=== PATIENT | male | born 1940 | race Caucasian/White ===

== ENCOUNTER 2023-04-01 21:22 | Outpatient (REF) | payer MEDICARE, SELFPAY ==
[2023-04-02 08:38] LABS: COVID-19 PCR Negative (Negative); Influenza A PCR Positive (Negative); Influenza B PCR Negative (Negative); RSV PCR Negative (Negative)
[2023-04-02 08:42] LABS: Source Nasopharynx
== END 2023-04-01 21:23 | disposition home or self-care (01) ==
LOC: LBN 21:22
PROVIDERS: Visit Provider Family Medicine
DX: R53.83 Other fatigue (principal); J11.1 Influenza due to unidentified influenza virus with other respiratory manifestations; Z20.822 Contact with and (suspected) exposure to COVID-19
CPT/HCPCS: 87637

== ENCOUNTER 2023-05-19 10:23 | Emergency (ER) | payer OTHER, MEDICARE, SELFPAY ==
[2023-05-19 10:23] VITALS: BP 132/80; PULSE 78; RESP 18; TEMP 37.2; O2SAT 97
--- NOTE | 2023-05-19 10:30 | DI.RAD_ITS ---
Exam(s) XR HAND LT COMPLETE EXAM: XR HAND LT COMPLETE CLINICAL HISTORY: Left hand pain little finger laceration. TECHNIQUE: 2D digital imaging was performed. COMPARISON: No exams were available for comparison FINDINGS: 3 views No evidence of fracture or dislocation. Examination is somewhat limited by all the bones overlapping on the lateral view without separation of the fingers. No obvious degenerative changes nor erosions . No radiopaque foreign body. IMPRESSION: Limited study. No obvious fractures. If there is significant consideration for a finger fracture th en dedicated views of that finger would be recommended. DATA REPOSITORY: RADIATION DOSE DELIVERED:
--- NOTE | 2023-05-19 10:31 | ED.GENADUL_ITS ---
Discharge Plan Disposition Patient Disposition: Home Discharge Details Clinical Impression: Immunization, tetanus-diphtheria, Hx of falling, Laceration of left hand Primary Care Provider: Unknown,Unknown ED Provider: Cesar Blackman Home Meds and New Rx's Prescriptions: Continued donepezil [Aricept] 10 mg tablet 10 mg PO QHS aspirin 81 mg tablet,delayed release (DR/EC) 81 mg PO DAILY Artificial Tears (cmc) 1 % drops 2 drp ophthalmic (eye) BID-QID PRN doxazosin 1 mg tablet 1 mg PO QHS bisacodyl 10 mg suppository 10 mg MD ONCE PRN magnesium oxide 400 mg magnesium tablet 400 mg PO DAILY polyethylene glycol 3350 [Miralax] 17 gram/dose powder 17 g PO DAILY PRN memantine 10 mg tablet 20 mg PO QAM sennosides 8.6 mg tablet 8.6 mg PO DAILY sertraline 25 mg tablet 25 mg PO DAILY Discharge Instructions Instructions: Laceration (ED) Additional Instructions: You were seen in the emergency department for your left hand laceration which was closed with Steri-Strips. The laceration on your chin was closed with 2 stitches that will dissolve on their own. As we discussed, please keep your wound clean, dry and covered. Please do not soak in a tub, swim or engage in any activities which could introduce dirt into your wound. As we discussed if you develop any foul-smelling drainage fevers streaking signs of infection or have any other concerns please return to the emergency department. Your x-ray showed no sign of any obvious broken bones. No signs of any bleeding in your head. For your pain please take medications as follows: 1. Take acetaminophen (Tylenol), 1,000 mg (two 500 mg tabs) every 6 hours Discharge Data Discharge Date/Time-TO BE ENTERED AT DEPARTURE: 05/19/23 12:07 HPI General Date/Time Provider Initiated Documentation: 05/19/23 10:30 . HPI Narrative: MDM This is an overall very well-appearing normothermic and not tachycardic 83-year-old male of unknown hand dominance with left little finger skin tear and left sided chin laceration which were cleaned and repaired. Given head strike will obtain CT head. Handling secretions with no signs of midface instability so no indication for CT maxillofacial. No obvious osseous abnormalities on x- ray of left little finger and no significant tenderness. Radiology commented on limited ability to read left little finger but in the absence of bony tenderness I felt that the risks of immobilization outweigh the benefits. Tetanus updated in the ED. no pain out of proportion to suggest necrotizing soft tissue infection. Patient appears to be moving his left little finger well. No midline cervical spinal tenderness to suggest benefit from CT cervical spine. 2:[address] head was read as showing no acute intercranial process. Dissolvable sutures placed in left side of chin which patient tolerated well. Left little finger skin tear approximated with Steri-Strips following copious cleaning and irrigation. Patient discharged back to skilled rehab. Chronic conditions affecting the care of the patient: Dementia History obtained from an outside historian: Paramedics External record review: N/A Medications: Acetaminophen tetanus Social determinants of health affecting disposition: N/A Management discussed with: N/A Treatment/interventions considered: N/A Response to therapies provided: N/A HPI This is a demented 83-year-old male of unknown handedness arriving to the emergency department via EMS in the setting of a fall. Patient was reportedly ambulating and reportedly fell. He reportedly landed on his left little finger which was bandaged. He struck his chin. No reported chest pain beforehand. No reported loss of consciousness. No reported vomiting. Was in his usual state of health earlier today. Unable to obtain additional history secondary to to the patient's dementia. Patient reportedly is at mental baseline per staff. Exam General: Chronically ill-appearing in no acute distress Head: Normocephalic, atraumatic. Eye: Extraocular eye movements intact. No conjunctival injection. No scleral icterus. Ear, nose, mouth, throat: Left side of the patient's chin there is a approximately 2 cm laceration. Neck: Trachea midline. Cardiovascular: Well-perfused distal extremities. Respiratory: Nonlabored respiration. Gastrointestinal: Nondistended abdomen. Musculoskeletal: At the base of the left little finger overlying the MCP. There is an ulnar skin tear measuring approximately 3 cm that is hemostatic. Patient appears to be moving his finger well. No obvious bony tenderness. Patient appears to be moving his entire hand well. No significant deformities. Skin: Normal for age and race, grossly normal temperature and turgor. No acute rash. Neurologic: GCS 14: E4, V4, M6 Related Data Home Medications Medication Instructions Recorded Confirmed aspirin 81 mg tablet,delayed 81 mg PO DAILY 05/19/23 05/19/23 release bisacodyl 10 mg rectal suppository 10 mg MD ONCE PRN 05/19/23 05/19/23 carboxymethylcellulose sodium 1 % 2 drp ophthalmic (eye) BID-QID PRN 05/19/23 05/19/23 eye drops (Artificial Tears (carboxymethylcellulose)) donepezil 10 mg tablet (Aricept) 10 mg PO QHS 05/19/23 05/19/23 doxazosin 1 mg tablet 1 mg PO QHS 05/19/23 05/19/23 magnesium oxide 400 mg PO DAILY 05/19/23 05/19/23 memantine 10 mg tablet 20 mg PO QAM 05/19/23 05/19/23 polyethylene glycol 3350 17 17 g PO DAILY PRN 05/19/23 05/19/23 gram/dose oral powder (Miralax) sennosides 8.6 mg tablet 8.6 mg PO DAILY 05/19/23 05/19/23 sertraline 25 mg tablet 25 mg PO DAILY 05/19/23 05/19/23 Allergies Allergy/AdvReac Type Severity Reaction Status Date / Time cucumber Allergy Unknown Other (See Verified 05/19/23 10:25 Comment) General Stated Complaint: Laceration MARY: 4 Course Vital Signs Vital signs: Vital Signs Temperature 37.2 C 05/19/23 10:23 Pulse 78 05/19/23 10:23 Respiratory Rate 18 05/19/23 10:23 Blood Pressure 132/80 05/19/23 10:23 Pulse Oximetry 97 05/19/23 10:23 Temperature 37.2 C 05/19/23 10:23 Temperature Source Temporal Artery Scan 05/19/23 10:23 Pulse 78 05/19/23 10:23 Respiratory Rate 18 05/19/23 10:23 Blood Pressure 132/80 05/19/23 10:23 Blood Pressure Position Supine 05/19/23 10:23 Pulse Oximetry 97 05/19/23 10:23 Oxygen Delivery Method Room Air 05/19/23 10:23 Oxygen Flow Rate 0 05/19/23 10:23 Procedures Laceration Laceration 1: Site: face Size (cm): 2 Description: linear Depth: simple, single layer Local Anesthetic: other anesthetic (LET) Pre-repair: wound explored and irrigated extensively Skin layer closed with: other (Chronic cut) Size (cm): 5-0 Number of sutures: 2 Technique: simple, interrupted Laceration 2: Site: hand Side (If applicable): left Size (cm): 2 Description: flap Depth: simple, single layer Pre-repair: wound explored Skin layer closed with: other (Steri-Strips) Medical Decision Making Quality:SDOH Health Related Social Needs: No Data to Display PFSH All Active Problems (Updated 05/19/23 @ 10:33 by Cesar Blackman MD) Laceration of left hand (Acute) Hx of falling (Acute) Immunization, tetanus-diphtheria (Acute) Social History Smoking/Tobacco Use Status: Unknown Smoking risk assessment performed?: Yes Alcohol Intake: former Substance use type: does not use Details: unknown, dementia Housing: shelter Additional Social history: Dementia, unable to answer
[2023-05-19] MEDS: Lidocaine/Epinephri/Tetracaine Topical Gel 3 ML (10:54)
--- NOTE | 2023-05-19 11:01 | DI.VRAD_ITS ---
PROCEDURE INFORMATION: Exam: XR Left Hand Exam date and time: 05/19/2023 10:45 AM Age: 83 years old Clinical indication: Other: Left hand pain little finger laceration TECHNIQUE: Imaging protocol: Radiologic exam of the left hand. Views: 3 or more views. COMPARISON: No relevant prior studies available. FINDINGS: Bones/joints: Limited by patient position and finger flexion. Can not assess for fracture within the 5th digit. Soft tissues: Normal. IMPRESSION: 1. Limited by patient position and finger flexion. 2. Can not assess for fracture within the 5th digit. Dictated and Authenticated by: Alem Izquierdo MD. Ordering:ARIS Guerrero MD
--- NOTE | 2023-05-19 11:04 | DI.CT_ITS ---
Exam(s) CT HEAD WO EXAM: CT HEAD WO CLINICAL HISTORY: fall head strike. TECHNIQUE: Imaging Protocol: Axial computed tomography images with coronal and sagittal reformatted images were created and reviewed COMPARISON: No exams were available for comparison FINDINGS: Motion artifact evident limiting evaluation. There are no depressed skull fractures. There is no fluid in the visualized paranasal sinuses. There is no evidence of obvious acute intracranial hemorrhage, mass effect, or shift of midline struc tures. There are no extra-axial fluid collections. Ventricular system is moderately prominent but commensurate with the size of the overlying cortical s ulci. IMPRESSION: No obvious acute intracranial findings. Evaluation is somewhat limited by motion artifact. Patient was apparently not able to be cooperative. RADIATION DOSE DELIVERED: 818.71mGy.cm Total DLP DATA REPOSITORY: All CT scans at this facility are submitted to the National Radiology Data Registry (NRDR) Dose Index Registry (DIR) with the [employer] (ACR). RADIATION OPTIMIZATION: All CT scans at this facility use at least one of these dose optimization te chniques: automated exposure control; mA and/or kV adjustment per patient size (includes targeted exa ms where dose is matched to clinical indication); or iterative reconstruction.
--- NOTE | 2023-05-19 11:11 | DI.VRAD_ITS ---
PROCEDURE INFORMATION: Exam: CT Head Without Contrast Exam date and time: 05/19/2023 10:59 AM Age: 83 years old Clinical indication: Other: Fall head strike TECHNIQUE: Imaging protocol: Computed tomography of the head without contrast. COMPARISON: No relevant prior studies available. FINDINGS: Brain: Central and cortical brain atrophy evident, appropriate for patient age. There is nonspecific periventricular low attenuation, likely microangiopathic disease. No acute intracranial hemorrhage. Cerebral ventricles: No ventriculomegaly. Paranasal sinuses: Visualized sinuses are unremarkable. No fluid levels. Mastoid air cells: Visualized mastoid air cells are well aerated. Bones/joints: Unremarkable. No acute fracture. Soft tissues: Unremarkable. IMPRESSION: No acute intracranial abnormality. Dictated and Authenticated by: Alem Izquierdo MD. Ordering:ARIS Guerrero MD
[2023-05-19 12:11] VITALS: BP 128/74; PULSE 72; RESP 16; TEMP 37.2; O2SAT 97
== END 2023-05-19 12:07 | disposition home or self-care (01) ==
LOC: ER 11:54
PROVIDERS: Emergency Provider Emergency Medicine
DX: S61.217A Laceration without foreign body of left little finger without damage to nail, initial encounter (principal); W01.190A Fall on same level from slipping, tripping and stumbling with subsequent striking against furniture, initial encounter; Z23 Encounter for immunization; S01.81XA Laceration without foreign body of other part of head, initial encounter
CPT/HCPCS: 12011; 90471; 90715; 99284; 70450; 73130

== ENCOUNTER 2023-05-25 14:31 | Emergency (ER) | payer OTHER, SELFPAY ==
[2023-05-25 14:33] VITALS: BP 154/78; PULSE 53; RESP 15; TEMP 36.3; O2SAT 98
--- NOTE | 2023-05-25 14:36 | W.ED.GENAD ---
Discharge Plan Disposition Patient Disposition: Home Discharge Details Clinical Impression: Abrasion of scalp, Hx of falling, Skin tear of left upper extremity Primary Care Provider: Unknown,Unknown ED Provider: Cesar Blackman Home Meds and New Rx's Prescriptions: Continued donepezil [Aricept] 10 mg tablet 10 mg PO QHS aspirin 81 mg tablet,delayed release (DR/EC) 81 mg PO DAILY Artificial Tears (cmc) 1 % drops 2 drp ophthalmic (eye) BID-QID PRN doxazosin 1 mg tablet 1 mg PO QHS bisacodyl 10 mg suppository 10 mg WA ONCE PRN magnesium oxide 400 mg magnesium tablet 400 mg PO DAILY polyethylene glycol 3350 [Miralax] 17 gram/dose powder 17 g PO DAILY PRN memantine 10 mg tablet 20 mg PO QAM sennosides 8.6 mg tablet 8.6 mg PO DAILY sertraline 25 mg tablet 25 mg PO DAILY Discharge Instructions Instructions: Abrasion (ED) Additional Instructions: You were seen in the emergency department for your left forehead skin tear your CAT scan showed no sign of any bleeding in your head. Which was closed with Steri-Strips. As we discussed, please keep your wound clean, dry and covered. Please do not soak in a tub, swim or engage in any activities which could introduce dirt into your wound. As we discussed if you develop any foul-smelling drainage fevers streaking signs of infection or have any other concerns please return to the emergency department. For your pain please take medications as follows: 1. Take acetaminophen (Tylenol), 1,000 mg (two 500 mg tabs) every 6 hours Discharge Data Discharge Date/Time-TO BE ENTERED AT DEPARTURE: 05/25/23 16:13 HPI General Date/Time Provider Initiated Documentation: 05/25/23 14:34. HPI Narrative: MDM This is an overall very well-appearing afebrile and not tachycardic 83-year-old male of unknown hand dominance with left forehead and left radial wrist skin tear which will be cleaned and repaired using Steri-Strips. Given head strike will obtain CT head. Patient is handling secretions with no signs of midface instability so no indication for CT maxillofacial. No obvious bony tenderness to the left wrist so will defer plain films. Tetanus updated last week in the ED. No pain out of proportion to suggest necrotizing soft tissue infection. No afferent pupillary defect nor proptosis to suggest retrobulbar hematoma so no indication for lateral canthotomy. Patient has a history of dementia and was not ambulating nor did he reportedly had a syncopal episode so we will defer ECG and laboratory evaluation. No midline cervical spinal tenderness to suggest benefit from CT cervical spine. 3:[address] head was read as showing no acute intercranial process. Patient did have a 2 mm round metallic density in the subcu tissues overlying the left masseter muscle. I inspected this area. There is no signs of trauma. Patient's arrived. She said that he had served in the [employer] and had been around explosions. This is certainly possible cause for his metallic foreign body. Given no obvious signs of any trauma in this area I did not feel any further interventions were required. Steri-Strips closed the left forehead skin tear and left wrist skin tear following copious cleaning and irrigation. Patient discharged back to skilled rehab. I updated patient's at bedside. Hypertension resolved in the ED with acetaminophen and LET. Chronic conditions affecting the care of the patient: Dementia History obtained from an outside historian: Paramedics External record review: N/A Medications: Acetaminophen Social determinants of health affecting disposition: N/A Management discussed with: N/A Treatment/interventions considered: N/A Response to therapies provided: N/A HPI This is a demented 83-year-old male of unknown handedness arriving to the emergency department via EMS in the setting of a fall. Patient was reportedly sitting in a chair asleep when he reportedly fell forward. He reportedly landed on his head and left wrist which were bandaged prehospital. No reported chest pain beforehand. No reported loss of consciousness. No reported vomiting. Was in his usual state of health earlier today. Unable to obtain additional history secondary to to the patient's dementia. Patient reportedly is at mental baseline per staff. Exam General: Chronically ill-appearing in no acute distress Head: Normocephalic. On the left temporal scalp there is an approximately 2 x 2 centimeter hemostatic skin tear. Eye: Extraocular eye movements intact. No conjunctival injection. No scleral icterus. No afferent pupillary defect. No proptosis. Ear, nose, mouth, throat: No hemotympanum bilaterally. No septal hematoma. Handling secretions. Neck: Trachea midline. No midline cervical spinal tenderness. Cardiovascular: Well-perfused distal extremities. Regular rate and rhythm. Respiratory: Nonlabored respiration. Clear lungs bilaterally. Gastrointestinal: Nondistended abdomen. Soft nontender. Back: No midline thoracic nor lumbar spinal tenderness. Musculoskeletal: On the radial side of the left wrist there is a hemostatic approximately 1 x 1 cm skin tear. Left hand warm well-perfused 2+ left radial pulse. Patient appears to be moving his left hand well. Cap refill less than 2 seconds in left fingertips. Skin: Normal for age and race, grossly normal temperature and turgor. No acute rash. Neurologic: GCS 14: E4, V4, M6 Related Data Home Medications Medication Instructions Recorded Confirmed aspirin 81 mg tablet,delayed 81 mg PO DAILY 05/19/23 05/25/23 release bisacodyl 10 mg rectal suppository 10 mg WA ONCE PRN 05/19/23 05/25/23 carboxymethylcellulose sodium 1 % 2 drp ophthalmic (eye) BID-QID PRN 05/19/23 05/25/23 eye drops (Artificial Tears (carboxymethylcellulose)) donepezil 10 mg tablet (Aricept) 10 mg PO QHS 05/19/23 05/25/23 doxazosin 1 mg tablet 1 mg PO QHS 05/19/23 05/25/23 magnesium oxide 400 mg PO DAILY 05/19/23 05/25/23 memantine 10 mg tablet 20 mg PO QAM 05/19/23 05/25/23 polyethylene glycol 3350 17 17 g PO DAILY PRN 05/19/23 05/25/23 gram/dose oral powder (Miralax) sennosides 8.6 mg tablet 8.6 mg PO DAILY 05/19/23 05/25/23 sertraline 25 mg tablet 25 mg PO DAILY 05/19/23 05/25/23 Allergies Allergy/AdvReac Type Severity Reaction Status Date / Time cucumber Allergy Unknown Other (See Verified 05/25/23 14:36 Comment) General Stated Complaint: Laceration MARY: 4 Course Vital Signs Vital signs: Vital Signs Temperature 36.3 C L 05/25/23 14:33 Pulse 53 L 05/25/23 14:33 Respiratory Rate 15 05/25/23 14:33 Blood Pressure 154/78 H 05/25/23 14:33 Pulse Oximetry 98 05/25/23 14:33 Temperature 36.3 C L 05/25/23 14:33 Temperature Source Temporal Artery Scan 05/25/23 14:33 Pulse 53 L 05/25/23 14:33 Respiratory Rate 15 05/25/23 14:33 Respiratory Effort Normal 05/25/23 14:35 Blood Pressure 154/78 H 05/25/23 14:33 Blood Pressure Position Sitting 05/25/23 14:33 Pulse Oximetry 98 05/25/23 14:33 Oxygen Delivery Method Room Air 05/25/23 14:33 Oxygen Flow Rate 0 05/25/23 14:33 Procedures Laceration Laceration 1: Site: face Side (If applicable): left Size (cm): 2 Description: flap Depth: simple, single layer Local Anesthetic: other anesthetic (LET) Pre-repair: wound explored and irrigated extensively Skin layer closed with: other (Steri-Strips applied with my supervision by nurse Baker) Laceration 2: Site: upper extremity Side (If applicable): left Size (cm): 1 Description: flap Depth: simple, single layer Pre-repair: wound explored and irrigated extensively Skin layer closed with: other (Steri-Strips applied with my supervision by nurse Baker) Medical Decision Making Quality:SDOH Health Related Social Needs: No Data to Display PFSH All Active Problems (Updated 05/25/23 @ 15:04 by Cesar Blackman MD) Skin tear of left upper extremity (Acute) Abrasion of scalp (Acute) Laceration of left hand (Acute) Hx of falling (Acute) Immunization, tetanus-diphtheria (Acute) Social History Smoking/Tobacco Use Status: Unknown Smoking risk assessment performed?: Yes Alcohol Intake: former Substance use type: does not use Details: unknown, dementia Housing: skilled nursing Additional Social history: Dementia, unable to answer
[2023-05-25] MEDS: Lidocaine/Epinephri/Tetracaine Topical Gel 3 ML TP (14:39)
[2023-05-25] MEDS: Lidocaine/Epinephri/Tetracaine Topical Gel 3 ML (14:48)
--- NOTE | 2023-05-25 15:24 | DI.CT_ITS ---
Exam(s) CT HEAD WO EXAM: CT HEAD WO CLINICAL HISTORY: Left temporal skin tear. TECHNIQUE: Imaging Protocol: Axial computed tomography images with coronal and sagittal reformatted images were created and reviewed COMPARISON: CT CT HEAD WO from 05/19/2023 FINDINGS: The examination is limited due to patient motion artifact. Ventricles and Extra axial spaces: Normal in size and morphology for the patient's age. Hemorrhage: None. Cerebral parenchyma: There are areas of decreased attenuation in the white matter consistent with sma ll vessel ischemic disease. No mass effect. No evidence of an acute territorial infarct. Midline shift: None. Brainstem/Cerebellum: Normal. Calvarium: Normal. Visualized Paranasal sinuses/Mastoids: There is a fluid level in the left maxillary sinus. There is mucosal thickening in the visualized paranasal sinuses with sparing of the sphenoid sinuses. Soft Tissues: There is mild soft tissue swelling over the left cheek. There is a 2 mm metallic densi ty in the subcutaneous tissues overlying the left masseter muscle anterior to the parotid gland. IMPRESSION: 1. No acute intracranial process. 2. 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 3. Soft tissue swelling over the left cheek and the left frontal bone where there appears to be a sma ll laceration. 4. 2 mm round metallic density in the subcutaneous tissues overlying the left masseter muscle anterio r to the left parotid gland. 5. Findings were discussed with Dr. Blackman at 3:40 p.m. on 05/25/2023. RADIATION DOSE DELIVERED: 779.68mGy.cm Total DLP DATA REPOSITORY: All CT scans at this facility are submitted to the National Radiology Data Registry (NRDR) Dose Index Registry (DIR) with the [employer] (ACR). RADIATION OPTIMIZATION: All CT scans at this facility use at least one of these dose optimization te chniques: automated exposure control; mA and/or kV adjustment per patient size (includes targeted exa ms where dose is matched to clinical indication); or iterative reconstruction.
[2023-05-25 16:12] VITALS: BP 126/87; PULSE 59; RESP 16; O2SAT 97
== END 2023-05-25 16:13 | disposition home or self-care (01) ==
PROVIDERS: Emergency Provider Emergency Medicine
DX: S00.01XA Abrasion of scalp, initial encounter (principal); S41.112A Laceration without foreign body of left upper arm, initial encounter; W19.XXXA Unspecified fall, initial encounter; Z91.81 History of falling
CPT/HCPCS: 99284; 70450; 99283

== ENCOUNTER 2023-06-11 13:55 | Inpatient (IN) | payer OTHER, SELFPAY ==
[2023-06-11 13:55] VITALS: BP 138/69; PULSE 69; RESP 15; TEMP 36.6; O2SAT 93
--- NOTE | 2023-06-11 14:00 | DI.CT_ITS ---
Exam(s) CT HEAD CERVICAL SPINE WO EXAM: CT HEAD CERVICAL SPINE WO CLINICAL HISTORY: fall. TECHNIQUE: Imaging Protocol: Axial computed tomography images with coronal and sagittal reformatted images were created and reviewed COMPARISON: CT CT HEAD WO from 05/25/2023 FINDINGS: BRAIN: There are no skull fractures. There is significant amount of fluid in the left maxillary sinus witho ut an obvious orbital blowout fracture. No fluid in the right maxillary sinus. Nasal bone fracture on the right side which is probably not acute. There is a subcutaneous round metallic density over t he lateral left face which was also described on the 05/25/2023 scan. Has the appearance of a metall ic BB. There is no evidence of intracranial hemorrhage, mass effect, or shift of midline structures. There are no extra-axial fluid collections. The lateral ventricles are somewhat prominent in size but joyce lar to previous. There is some mild periventricular hypodensity consistent with chronic small vessel disease. No obvious acute territorial infarct. CERVICAL SPINE: No evidence of acute fracture nor significant listhesis. Chronic disc space narrowing at C5-6 level is noted. Other disc spaces exhibit normal height. There is mild degenerative anterolisthesis of C4 upon C5 related to facet arthropathy. There is multileve l facet arthropathy. No facet malalignment. No osseous lesions. IMPRESSION: No acute intracranial findings on this noninfused CT scan of the brain.Lateral ventricles again noted be enlarged. Correlation with any clinical signs of normal pressure hydrocephalus recommended. Lef t maxillary sinus fluid level again noted. Metallic subcutaneous BB left side anterior to the paroti d gland. No evidence of cervical spine fracture, malalignment, nor acute compromise of the cervical spinal can al. Chronic disc space narrowing at C5-6 level is noted and there is multilevel facet arthrosis but no facet malalignment. Report called by myself to ER provider. RADIATION DOSE DELIVERED: Total DLP DATA REPOSITORY: All CT scans at this facility are submitted to the National Radiology Data Registry (NRDR) Dose Index Registry (DIR) with the [employer] (ACR). RADIATION OPTIMIZATION: All CT scans at this facility use at least one of these dose optimization te chniques: automated exposure control; mA and/or kV adjustment per patient size (includes targeted exa ms where dose is matched to clinical indication); or iterative reconstruction.
--- NOTE | 2023-06-11 14:37 | W.ED.GENAD ---
Discharge Plan Disposition Patient Disposition: Admit to [facility] Condition: Stable Discharge Details Chief Complaint: Fall/Non TraumaCriteria Clinical Impression: Closed fracture of neck of left femur, Hx of falling Primary Care Provider: Unknown,Unknown ED Provider: Maxi Jay Home Meds and New Rx's Prescriptions: No Action donepezil [Aricept] 10 mg tablet 10 mg PO QHS aspirin 81 mg tablet,delayed release (DR/EC) 81 mg PO DAILY Artificial Tears (cmc) 1 % drops 2 drp ophthalmic (eye) BID-QID PRN doxazosin 1 mg tablet 1 mg PO QHS bisacodyl 10 mg suppository 10 mg MA ONCE PRN magnesium oxide 400 mg magnesium tablet 400 mg PO DAILY polyethylene glycol 3350 [Miralax] 17 gram/dose powder 17 g PO DAILY PRN memantine 10 mg tablet 20 mg PO QAM sennosides 8.6 mg tablet 8.6 mg PO DAILY sertraline 25 mg tablet 25 mg PO DAILY HPI General Date/Time Provider Initiated Documentation: 06/11/23 14:07. Limitations to Documentation: altered mental status. Information obtained by: RN/MD. HPI Narrative: 83-year-old gentleman with past medical history of dementia presents for evaluation of left lower extremity swelling after a fall. Patient history is obtained from the nursing facility as the patient is unable to provide any additional history at this time. They report a mechanical fall 2 days ago. They report that he has had swelling in his left leg since then. Related Data Home Medications Medication Instructions Recorded Confirmed aspirin 81 mg tablet,delayed 81 mg PO DAILY 05/19/23 06/11/23 release bisacodyl 10 mg rectal suppository 10 mg MA ONCE PRN 05/19/23 06/11/23 carboxymethylcellulose sodium 1 % 2 drp ophthalmic (eye) BID-QID PRN 05/19/23 06/11/23 eye drops (Artificial Tears (carboxymethylcellulose)) donepezil 10 mg tablet (Aricept) 10 mg PO QHS 05/19/23 06/11/23 doxazosin 1 mg tablet 1 mg PO QHS 05/19/23 06/11/23 magnesium oxide 400 mg PO DAILY 05/19/23 06/11/23 memantine 10 mg tablet 20 mg PO QAM 05/19/23 06/11/23 polyethylene glycol 3350 17 17 g PO DAILY PRN 05/19/23 06/11/23 gram/dose oral powder (Miralax) sennosides 8.6 mg tablet 8.6 mg PO DAILY 05/19/23 06/11/23 sertraline 25 mg tablet 25 mg PO DAILY 05/19/23 06/11/23 Allergies Allergy/AdvReac Type Severity Reaction Status Date / Time cucumber Allergy Unknown Other (See Verified 06/11/23 14:06 Comment) General Stated Complaint: Fall/Non TraumaCriteria MARY: 3 Exam Narrative Exam Narrative: Review of Systems: All systems reviewed & are unremarkable except as noted in HPI and below Well-developed, no acute distress NCAT PERRL, normal conjunctiva RRR Unlabored respiratory effort, clear bilaterally Nondistended abdomen Left hip with tenderness to palpation, cries out, left lower extremity does appear slightly shortened, not rotated, there is a trace amount of edema in the left foot however distal pulses intact No rashes or lesions. no focal neurologic deficits Alert, pleasant, not oriented Course Vital Signs Vital signs: Vital Signs Temperature 36.6 C 06/11/23 13:55 Pulse 69 06/11/23 13:55 Respiratory Rate 15 06/11/23 13:55 Blood Pressure 138/69 06/11/23 13:55 Pulse Oximetry 93 06/11/23 13:55 Temperature 36.6 C 06/11/23 13:55 Temperature Source Temporal Artery Scan 06/11/23 13:55 Pulse 69 06/11/23 13:55 Respiratory Rate 15 06/11/23 13:55 Respiratory Effort Normal, Non-Labored 06/11/23 14:00 Blood Pressure 138/69 06/11/23 13:55 Blood Pressure Position Supine 06/11/23 13:55 Pulse Oximetry 93 06/11/23 13:55 Oxygen Delivery Method Room Air 06/11/23 13:55 Oxygen Flow Rate 0 06/11/23 13:55 Medical Decision Making Emergent evaluation of left leg pain after fall. History significantly limited. My examination does reveal left hip tenderness concerning for fracture. Per report patient is DNR/DNI, comfort care. They attempted to obtain outpatient x-rays but were unable to get prior authorization so they sent the patient to the emergency department for further evaluation. Given the lack of history and unclear circumstances of the fall, will also get CT head and C-spine that there is no signs of obvious trauma on examination. The report does indicate that this mental status is the patient's baseline as well. 1600 Discussed imaging with radiology. No intracranial process. Left hip fracture noted. Discussed with orthopedic surgery, the patient will be admitted here for operative repair. is at bedside and agrees with this plan. She would prefer to stay here versus being transferred to the [place]. She also reports that the patient has been independently mobile until his fall 2 days ago. Discussed with the hospitalist and the patient will be admitted to their surgery for further management. Preoperative lab work has been requested and the order has been placed. These labs will be followed up by the hospitalist. Medical Records Medical records reviewed: Yes I reviewed the patient's medical records. Lab Data Lab results reviewed: Yes I reviewed the patient's lab results. Quality:SDOH Health Related Social Needs: No Data to Display PFSH All Active Problems (Updated 06/11/23 @ 16:10 by Maxi Jay MD) Closed fracture of neck of left femur (Acute) Skin tear of left upper extremity (Acute) Abrasion of scalp (Acute) Laceration of left hand (Acute) Hx of falling (Acute) Immunization, tetanus-diphtheria (Acute) Social History Smoking/Tobacco Use Status: Unknown Smoking risk assessment performed?: Yes Alcohol Intake: former Substance use type: does not use Details: unknown, dementia Housing: intermediate Additional Social history: Dementia, unable to answer
--- NOTE | 2023-06-11 15:18 | DI.RAD_ITS ---
Exam(s) XR HIP PELVIS ADULT BL EXAM: XR HIP PELVIS ADULT BL CLINICAL HISTORY: fall. TECHNIQUE: 2D digital imaging was performed. COMPARISON: No exams were available for comparison FINDINGS: There is a subcapital fracture of the left hip. Mild displacement. No right hip fracture nor other pelvic fractures. 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 IMPRESSION: Left hip subcapital femoral neck fracture. Called to ER. DATA REPOSITORY: RADIATION DOSE DELIVERED:
--- NOTE | 2023-06-11 16:05 | OCONE_ITS ---
Date of service: 06/11/23 Time of Service: 16:53 History of Present Illness History of Present Illness Chief Complaint: Left Hip Pain Narrative: Dru is an 83-year-old male who resides at the health rehab facility due to severe Alzheimer's dementia. He has no other significant medical issues. He usually ambulates quite routinely even at the intermediate. Unfortunately, he has been having increasing issues with balance which has led to more frequent falls. He has had some bruises and scrapes. However, he fell 2 days ago. He is held back to bed but was unable to ambulate. He continued to complain of left hip pain and therefore he was brought to the emergency department and diagnosed with a displaced femoral neck fracture on the left side. His is at the bedside and answers questions. No other reported injuries or issues. He does complain of pain with any attempted motion about the left leg and along with what appears to be some occasional spasms or grabs of pain. Consults Consult date: 06/11/23 Requesting physician: Maxi Jay Consult Reason Left Hip Fracture Assessment and Plan Assessment and plan (1) Closed fracture of neck of left femur: Status: Acute Assessment and plan: Dru is an 83-year-old male who has severe dementia unfortunately, he had a fall which resulted in a fracture about the left femoral neck. Given the displaced nature of this fracture and his desire to ambulate, I would recommend proceeding with operative fixation. This would be in the form of either hemiarthroplasty or total hip arthroplasty. I did discuss both options with his . He does not complain of pain although has been having increasing balance issues. He does have some signs of arthritis with the left hip including chondrocalcinosis. It is possible some of his balance issues could be coming from pain about the hips, or more closely associated with his overall mental decline. Given the dementia, it is hard to know what his long-term prognosis is although it sounds like it has been a fairly rapid decline. With this scenario I think hemiarthroplasty is likely the best option to minimize instability risk. However, if there was gross cartilage loss seen during the surgery I would proceed with total hip arthroplasty. I discussed technical details of this. I reviewed risk to include bleeding, infection, pain, stiffness, fracture, instability, dislocation requiring future surgery, damage to nerves and vessels, damage to muscle and tendons, blood clot, anesthetic complications including delirium, cardiopulmonary demise. Despite these risk, his agrees to proceed. Unfortunately, they are already multiple hip surgeries on for tomorrow. I will have to work with the operating room staff to ensure that we have enough equipment to proceed with this tomorrow. I will try to make that decision early in the day. Worst-case scenario would be proceeding on Sunday for fixation of his fracture with hip and hemiarthroplasty. Review of Systems Unobtainable due to mental condition PFSH All Active Problems Closed fracture of neck of left femur (Acute) Skin tear of left upper extremity (Acute) Abrasion of scalp (Acute) Laceration of left hand (Acute) Hx of falling (Acute) Immunization, tetanus-diphtheria (Acute) Social History Smoking/Tobacco Use Status: Unknown Smoking risk assessment performed?: Yes Alcohol Intake: former Substance use type: does not use Details: unknown, dementia Housing: intermediate Additional Social history: Dementia, unable to answer Exam Const General: healthy appearing and uncomfortable Nutritional Appearance: average body habitus and well nourished Orientation: not alert and not oriented x3 Extrem Other: Evaluation of the left lower extremity shows some shortening and slight external rotation when compared to the contralateral side. There is significant pain with any attempted range of motion of the left leg. There is 2+ pitting edema in the left lower extremity. No overlying skin changes. No wounds or abrasions of the left leg. He does show some spontaneous ankle dorsiflexion and great toe extension although he is unable to follow commands for more complete neurovascular examination. Palpable DP pulse. Results Last Vital Signs Temp 36.6 C 06/11/23 13:55 Pulse 69 06/11/23 13:55 Resp 15 06/11/23 13:55 BP 138/69 06/11/23 13:55 Pulse Ox 93 06/11/23 13:55 Labs 06/11/23 15:57 06/11/23 15:57 Imaging Imaging Studies: X-ray of the pelvis and left hip shows a displaced femoral neck fracture. This is a transcervical femoral neck fracture approaching on the subcapital region. There are also some signs of chondrocalcinosis within the left hip in addition to sclerosis of the acetabulum and some cystic change. He has some similar findings on the right side, associated with mild to moderate arthritis. Multiple clips are seen within the pelvis. No other pelvic fractures appreciated.
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
[2023-06-11 17:23] VITALS: O2SAT 96
[2023-06-11 17:24] VITALS: BP 168/79; PULSE 57; O2SAT 97
[2023-06-11 17:26] VITALS: BP 168/79; PULSE 62; RESP 14; O2SAT 95
[2023-06-11 19:06] VITALS: BP 150/70; PULSE 61; RESP 17; TEMP 37.1; O2SAT 95
[2023-06-11 19:20] LABS: Abs Immature Grans 0.04 10^3/uL (0.0-0.06); Absolute Basophil Count 0.03 10^3/uL (0.0-0.2); Absolute Eosinophil Count 0.43 10^3/uL (0.0-0.7); Absolute Monocyte Count 1.47 10^3/uL (0.1-0.8); Absolute Neutrophil Count 6.63 10^3/uL (1.2-6.7); Basophils % 0.3; Eosinophils % 4.3; HCT 38.9 % (40.0-50.0); HGB 12.8 g/dL (13.5-17.5); Immature Grans % 0.4; MCH 30.5 pg (27.0-33.0); MCHC 32.9 % (32.0-36.0); MCV 93 fL (80-95); Monocytes % 14.7; Neutrophils % 66.3; Platelet Count 151 10^3/uL (130-400); RDW 13.5 % (11.8-14.1); RDW-SD 46.5 fL
[2023-06-11 19:31] LABS: Prothrombin Time 10.2 sec (9.1-11.1)
[2023-06-11 19:38] LABS: ALT 36 U/L (16-63); AST 28 U/L (15-37); Albumin 2.8 g/dL (3.4-5.0); Alkaline Phosphatase 81 U/L (46-116); Anion Gap 6.6 mmol/L (3-11); BUN 22 mg/dL (7-18); Bilirubin, Total 0.8 mg/dL (0.2-1.0); CO2 31.4 mmol/L (21.0-32.0); CREATININE 0.7 mg/dL (0.70-1.30); Calcium 8.4 mg/dL (8.5-10.1); Chloride 107 mmol/L (98-107); Estimated GFR 92.57 (mL/min/1.73m2); Glucose 123 mg/dL (74-106); Potassium 3.5 mmol/L (3.5-5.1); Sodium 145 mmol/L (136-145); Total Protein 6.6 g/dL (6.4-8.2)
[2023-06-11] MEDS: ACETAMINOPHEN 1,000 MG/100 ML BTL 400 MG IVPB (19:59)
[2023-06-11] MEDS: QUEtiapine 25 MG TAB 12.5 MG PO (20:01)
--- NOTE | 2023-06-11 20:30 | RT.EKG_ITS ---
APPROVED REPORT Exam: Resting ECG Reason for Exam: baseline pre op Patient Location: I HR:54 bpm ECG Measurements Heart Rate 54 AXIS WI 191 P 60 QRSd 64 QRS -20 QT 671 T [id number] QTc 637 Conclusion Poor quality data, interpretation may be affected Sinus rhythm...normal P axis, V-rate 50- 99 Borderline left axis deviation...QRS axis (-15,-29) Abnormal R-wave progression, early transition...QRS area>0 in V2 Artifact in lead(s) I,II,III,aVL,aVF,V1,V2,V3,V4,V5,V6
[2023-06-11] MEDS: Normal Saline Flush 10 ML SYR IVP (21:01)
[2023-06-11] MEDS: Normal Saline 1,000 ML 100 ML IV (21:17)
[2023-06-11 21:33] LABS: MRSA PCR Negative (Negative)
[2023-06-11 23:33] VITALS: BP 130/95; PULSE 60; RESP 20; TEMP 36; O2SAT 94
[2023-06-12 02:21] VITALS: BP 131/65; PULSE 58; RESP 18; TEMP 36.8; O2SAT 93
[2023-06-12] MEDS: ACETAMINOPHEN 1,000 MG/100 ML BTL 400 MG IVPB ×3 (04:21→21:21)
[2023-06-12 04:41] LABS: Bilirubin Negative (Negative); Blood Negative (Negative); Clarity Clear (Clear); Glucose Negative (Negative); Ketones Negative (Negative); Leukocyte Esterase Negative (Negative); Nitrite Negative (Negative); Urobilinogen >=8.0 mg/dL (Up to 0.2)
[2023-06-12 06:58] LABS: HCT 34.9 % (40.0-50.0); HGB 11.6 g/dL (13.5-17.5); MCH 30.4 pg (27.0-33.0); MCHC 33.2 % (32.0-36.0); MCV 92 fL (80-95); MPV 10.1 fL (8.0-11.0); Platelet Count 141 10^3/uL (130-400); RBC 3.81 10^6/uL (4.36-5.78); RDW 13.5 % (11.8-14.1); WBC 8.07 10^3/uL (4.4-10.8)
[2023-06-12 07:12] LABS: Anion Gap 7.7 mmol/L (3-11); BUN 20 mg/dL (7-18); CO2 29.3 mmol/L (21.0-32.0); CREATININE 0.7 mg/dL (0.70-1.30); Calcium 7.9 mg/dL (8.5-10.1); Chloride 108 mmol/L (98-107); Estimated GFR 92.57 (mL/min/1.73m2); Glucose 99 mg/dL (74-106); Sodium 145 mmol/L (136-145)
--- NOTE | 2023-06-12 07:33 | PGE_ITS ---
Date of Service Date of service: 06/12/23 Time of Service: 13:45 Assessment and Plan Assessment and plan (1) Closed fracture of neck of left femur: Status: Acute Assessment and plan: Dru is an 83-year-old with severe dementia who unfortunately fell with an unwitnessed fall and suffered a subcapital femoral neck fracture on the left side. Given the displaced nature of the fracture, I have recommended proceeding with operative fixation. The main goal of this would be for pain management. However, Dru's , Trina is not certain this is what he wants. I was bronson y honest with her that the right answer is what ever she chooses for Dru based on what she can determine to be his will. I do think that the surgery is 1 mode of pain treatment but the other mode would be continued comfort measures and likely hospice transition. He has had significant mental decline previously and then more recent functional decline which makes this a very challenging situatio n. Fixing the hip is no guarantee that he will have any significant improvement with his functional quality but it would be a way to treat pain. I answered her questions. She will be meeting with palliative care later today to determine best direction. However, at this point we will hold on any surgery today. He may eat. We will keep him n.p.o. after midnight tonight once again to discuss in the morning although anticipated hospice discharge. Subjective Subjective Interval history since last seen: I checked on Dru and his twice today. He is continues to struggle with some pain. He will cry out at times and jolt at times. Initially there was plan for surgery today but the expressed concerns about his desires expressed to her while he was still verbal as well as with his living will. In both instances he was clearly did not want surgery. She has talked with his son s as well and there is some concerns about moving forward with surgery and therefore a palliative care consult has been called for which will happen later today. No other acute medical changes. Objective Last Vital Signs Temp 36.8 C 06/12/23 02:21 Pulse 58 L 06/12/23 02:21 Resp 18 06/12/23 02:21 BP 131/65 06/12/23 02:21 Pulse Ox 93 06/12/23 02:21 Laboratory Results - last 24 hr 06/11/23 06/11/23 06/12/23 19:00 20:15 04:25 WBC 10.00 RBC 4.20 L Hgb 12.8 L Hct 38.9 L MCV 93 MCH 30.5 MCHC 32.9 RDW 13.5 Plt Count 151 MPV 10.0 Immature Gran % 0.4 Neutrophils % 66.3 Lymphocytes % 14.0 Monocytes % 14.7 Eosinophils % 4.3 Basophils % 0.3 Nucleated RBC % 0.0 Absolute Neutrophils 6.63 Absolute Lymphocytes 1.40 Absolute Monocytes 1.47 H Absolute Eosinophils 0.43 Absolute Basophils 0.03 PT 10.2 INR 1.0 Sodium 145 Potassium 3.5 Chloride 107 Carbon Dioxide 31.4 Anion Gap 6.6 BUN 22 H Creatinine 0.7 Est GFR (CKD-EPI 2020) 92.57 Glucose 123 H Calcium 8.4 L Magnesium Total Bilirubin 0.8 AST 28 ALT 36 Alkaline Phosphatase 81 Total Protein 6.6 Albumin 2.8 L Urine Color Yellow Urine Clarity Clear Urine pH 7.0 Ur Specific [place] 1.020 Urine Protein Trace Urine Ketones Negative Urine Blood Negative Urine Nitrite Negative Urine Bilirubin Negative Urine Urobilinogen >=8.0 H Ur Leukocyte Esterase Negative Urine Glucose Negative MRSA (TEM-PCR) Negative 06/12/23 06:30 WBC 8.07 RBC 3.81 L Hgb 11.6 L Hct 34.9 L MCV 92 MCH 30.4 MCHC 33.2 RDW 13.5 Plt Count 141 MPV 10.1 Immature Gran % Neutrophils % Lymphocytes % Monocytes % Eosinophils % Basophils % Nucleated RBC % Absolute Neutrophils Absolute Lymphocytes Absolute Monocytes Absolute Eosinophils Absolute Basophils PT INR Sodium 145 Potassium 3.0 L Chloride 108 H Carbon Dioxide 29.3 Anion Gap 7.7 BUN 20 H Creatinine 0.7 Est GFR (CKD-EPI 2020) 92.57 Glucose 99 Calcium 7.9 L Magnesium 2.0 Total Bilirubin AST ALT Alkaline Phosphatase Total Protein Albumin Urine Color Urine Clarity Urine pH Ur Specific [place] Urine Protein Urine Ketones Urine Blood Urine Nitrite Urine Bilirubin Urine Urobilinogen Ur Leukocyte Esterase Urine Glucose MRSA (TEM-PCR) Time Spent with Patient Time Spent with Patient: 25-34 minutes Time was spent: obtaining and/or reviewing separately otained hiistory, referring, communicating with other health day care director, counseling the patient and care coordination
[2023-06-12] MEDS: Normal Saline 1,000 ML 100 ML IV (08:00)
[2023-06-12 08:17] VITALS: BP 110/65; PULSE 53; RESP 18; TEMP 36.7; O2SAT 97
[2023-06-12] MEDS: MORPHine 4 MG/ML SYR 2 MG IVP (10:09)
--- NOTE | 2023-06-12 10:53 | W.PM.PROGNOT ---
Date of Service Date of service: 06/12/23 Time of Service: 12:30 Assessment and Plan Assessment and plan (1) Closed fracture of neck of left femur: Status: Acute Assessment and plan: Pain management CBCoredered in ED not available at the time of admission to the floor: Unable to evaluate for baseline H&H or reactive leukocytosis at this time NPO after midnight for OR on 06/13/2023 possibly: Spouse counseled on the benefits of palliative care surgical hip fracture repair VS no repair Resume IVF when NPO BMP in AM (2) Pain management: Status: Acute Assessment and plan: Scheduled Acetaminophen CrCl as per Cockcroft-Gault 82-85ml/min: Will add ketorolac low dose, short scheduled course PRN morphine (3) Hx of falling: Status: Acute Assessment and plan: CT head and C-spine were negative on admit No focal neuro deficits PT and OT consults ordered but spouse not approving rehab (4) Dementia: Status: Chronic Assessment and plan: History of dementia: As we anticipated worsening symptoms VS delirium during acute disease process and hospitalization Addition of seroquel overnight, will continue as needed (5) Hypokalemia: Status: Acute Assessment and plan: K 3.0, potassium replacement ordered BMP in AM (6) On deep vein thrombosis (DVT) prophylaxis: Status: Acute Assessment and plan: Possible OR in AM SCD's (7) Discharge planning issues: Status: Acute Assessment and plan: From a SNF facility will return as post-op condition permits CM to f/u OR to be decided after palliative consult as discussed with Dr. Dhillon Palliative consult Discussed with Dr. Nuno Subjective Subjective Patient reports: no new complaints, still having pain, voiding w/o difficulty and afebrile; denies diarrhea, vomiting or shortness of breath Exam Narrative Exam Narrative: Constitutional Frail appearing patient lying in bed w spouse at bedside. The patient is having spasms most likely d/t injury and related to discomfort Neuro:alert and oriented to self and spouse . No neurological focal deficit, but visual hallucinations where picks up items in the air Resp: clear lungs Cardio: regular rhythm, S1, S2, bilateral radial and dorsalis pedis pulses are positive, cap refill < 3 sec GI: Abdomen is not distended, soft and non tender, bowel sounds are present : wilson no bladder distention Psych: RASS 0 Objective Last Vital Signs Temp 36.7 C 06/12/23 08:17 Pulse 53 L 06/12/23 08:17 Resp 18 06/12/23 08:17 BP 110/65 06/12/23 08:17 Pulse Ox 97 06/12/23 08:17 Laboratory Results - last 24 hr 06/11/23 06/11/23 06/12/23 19:00 20:15 04:25 WBC 10.00 RBC 4.20 L Hgb 12.8 L Hct 38.9 L MCV 93 MCH 30.5 MCHC 32.9 RDW 13.5 Plt Count 151 MPV 10.0 Immature Gran % 0.4 Neutrophils % 66.3 Lymphocytes % 14.0 Monocytes % 14.7 Eosinophils % 4.3 Basophils % 0.3 Nucleated RBC % 0.0 Absolute Neutrophils 6.63 Absolute Lymphocytes 1.40 Absolute Monocytes 1.47 H Absolute Eosinophils 0.43 Absolute Basophils 0.03 PT 10.2 INR 1.0 Sodium 145 Potassium 3.5 Chloride 107 Carbon Dioxide 31.4 Anion Gap 6.6 BUN 22 H Creatinine 0.7 Est GFR (CKD-EPI 2020) 92.57 Glucose 123 H Calcium 8.4 L Magnesium Total Bilirubin 0.8 AST 28 ALT 36 Alkaline Phosphatase 81 Total Protein 6.6 Albumin 2.8 L Urine Color Yellow Urine Clarity Clear Urine pH 7.0 Ur Specific [place] 1.020 Urine Protein Trace Urine Ketones Negative Urine Blood Negative Urine Nitrite Negative Urine Bilirubin Negative Urine Urobilinogen >=8.0 H Ur Leukocyte Esterase Negative Urine Glucose Negative MRSA (TEM-PCR) Negative 06/12/23 06:30 WBC 8.07 RBC 3.81 L Hgb 11.6 L Hct 34.9 L MCV 92 MCH 30.4 MCHC 33.2 RDW 13.5 Plt Count 141 MPV 10.1 Immature Gran % Neutrophils % Lymphocytes % Monocytes % Eosinophils % Basophils % Nucleated RBC % Absolute Neutrophils Absolute Lymphocytes Absolute Monocytes Absolute Eosinophils Absolute Basophils PT INR Sodium 145 Potassium 3.0 L Chloride 108 H Carbon Dioxide 29.3 Anion Gap 7.7 BUN 20 H Creatinine 0.7 Est GFR (CKD-EPI 2020) 92.57 Glucose 99 Calcium 7.9 L Magnesium 2.0 Total Bilirubin AST ALT Alkaline Phosphatase Total Protein Albumin Urine Color Urine Clarity Urine pH Ur Specific [place] Urine Protein Urine Ketones Urine Blood Urine Nitrite Urine Bilirubin Urine Urobilinogen Ur Leukocyte Esterase Urine Glucose MRSA (TEM-PCR) Time Spent with Patient Time Spent with Patient: >50 minutes Time was spent: preparing to see the patient(eg.review tests), obtaining and/or reviewing separately otained hiistory, ordering medications,tests, procedures, referring, communicating with other health healthcare financial analyst, indepentently interpreting results, counseling the patient and care coordination
[2023-06-12 11:24] VITALS: BP 120/104; PULSE 64; RESP 17; TEMP 35.9; O2SAT 92
[2023-06-12] MEDS: POTASSIUM CHLORIDE 20 MEQ/100 ML BAG 50 MEQ IVPB ×4 (11:54→18:47)
[2023-06-12] MEDS: Normal Saline Flush 10 ML SYR IVP ×2 (11:55→21:22)
--- NOTE | 2023-06-12 14:27 | PCNE_ITS ---
Date of service: 06/12/23 Time of Service: 14:27 History of Present Illness Narrative: Mr. Pantoja is an 83 yo [facility] resident (who was living in [place] prior to that). with dementia who fell on 06/09/2023 and incurred a displaced fracture of L femoral neck. Meeting: with Breanna, Raulito Agudelo (on phone from [place]) Dxed 2014 with [employer]. Breanna kept him at home until last November with help from caregivers. Then she could no longer care for him at home; he became violent towards her. So he was admitted to [facility]. Over the last month: -more unstable walking (does not use aids, cannot learn to use walker or cane) and talking less. Was still being aggressive to staff at times. -Still loves to eat, eating fine prior to this fall. reports that he had not lost weight (no records came with him). -No choking or swallowing problems. Could no longer use utensils. Can black pickler food with his hands, he now needs to be fed. -Agressive behavior treated with behavioral modifications. And they have learned to dissuade him and distract him. Care Team: Primary Care physician: Dr. Mondragon, [facility] Ortho: [place] Social HX: Marital Status: Breanna for last 20 years. 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 Children: Raulito Agudelo in [place] and Mazin lives in [place] Hobbies: Additional Services: [facility] eligible Impression of currents health status: As per : In stages of dementia, speed of loss of function has speeded up over the last few months What bothers you the most: thinks he would be most upset that he is still alive but not himself anymore. He would not want to be in the state if he was here. What worries you the most: That he be kept comfortable Goals: That he be kept comfortable Current information preferences: Function: Ambulation: Was walking prior to this last fall, three ED visits for falls since 11/2023. Becoming more unstable. Still insists on walking. ADLs: Needs help with all ADLs. REcently even needs help with feeding. iADLs: dependent Hearing: NQ Vision:NQ Cognition:Fast 7A Falls: See HPI Driving: Palliative Performance Scale % Ambulation Activity and Evidence of Disease Self Care Intake Level of Consciousness 100 Full Normal activity, no evidence of disease Full Normal Full 90 Full Normal activity, some evidence of disease Full Normal Full 80 Full Normal activity with effort, some evidence of disease Full Normal or reduced Full 70 Reduced Unable to do normal work, some evidence of disease Full Normal or reduced Full 60 Reduced Unable to do hobby or some housework, significant disease Occasional assist necessary Normal or reduced Full or confusion 50 Mainly sit/lie Unable to do any work, extensive disease Considerable assistance required Normal or reduced Full or confusion 40 Mainly in bed Unable to do any work, extensive disease Mainly assistance Normal or reduced Full, drowsy, or confusion 30 Totally bed bound Unable to do any work, extensive disease Total care Reduced Full, drowsy, or confusion 20 Totally bed bound Unable to do any work, extensive disease Total care Minimal sips Full, drowsy, or confusion 10 Totally bed bound Unable to do any work, extensive disease Total care Mouth care only Drowsy or coma 0 - - - - Patient Score: 50 prior to Admission Functional Assessment Scale (FAST) 1 No difficulty either subjectively or objectively 2 Complains of forgetting location of objects. Subjective work difficulties 3 Decreased job functioning evident to co-workers. Difficulty in traveling to new locations. Decreased organizational capacity* 4 Decreased ability to perform complex task, (e.g., planning dinner for guests, handling personal finances, such as forgetting to pay bills, etc) 5 Requires assistance in choosing proper clothing to wear for the day, season, or occasion, (e.g., pt may wear the same clothing repeatedly unless supervised*) 6 Occasionally or more frequently over the past weeks for the following*: A) Improperly putting on clothes without assistance or cueing B) Unable to bathe properly (not able to choose proper water temp) C) Inability to handle mechanics of toileting (e.g., forget to flush the toilet, does not wipe properly or properly dispose of toilet tissue) D) Urinary Incontinence E) Fecal Incontinence 7 A) Ability to speak limited to approximately < 6 intelligible different words in the course of an average day or in the course of an intensive interview. B) Speech ability is limited to the use of a single intelligible word in an average day or in the course of an intensive interview C) Ambulatory ability is lost (cannot walk without personal assistance) D) Cannot sit up without assistance (e.g., the individual will fall over if there are not lateral rests [arms] on the chair) E) Loss of ability to smile. F) Loss of ability to hold up head independently *Scored primarily on information obtained from a knowledgeable informant. Patient Score: 7A Spiritual history: NA Palliative review of systems: Pain:See HPI. Dyspnea: GI symptoms: Appetite: Depression: Anxiety: None Emotional Distress: Spiritual/Existential Distress: Labs: Cr: 0.7 Liver panel: NL Albumin: 2.8 CBC: hgb 11.6 Advanced Care Planning: Advanced Directive: 2014 AD fron [facility] form scanned in to chart, reviewed Health Care Agent: Breanna Paz COLST: November 2022 COLST on file from [facility] : DNR/DNI comfort measures only. Limitations: Assessment and Plan Assessment and plan (1) Palliative care patient: Status: Acute Assessment and plan: Mr. Pantoja is an 83-year-old gentleman with advanced dementia. More rapid decline over this last several months with increased rate of falls. Now fell 3 days ago and broke his left hip. He has a COLST from over 5 years ago when he still had capacity that clearly stated he would not want any interventions that would prolong his life. He also expresses verbally prior to losing capacity. and son are very clear that he had expressed in the past that he would not want any interventions that would prolong his life should he have dementia. We explored the 2 options available to Trina and Magnus today: The first being palliative repair (requiring surgery) versus no surgery and aggressive pain management. We discussed what they thought Dru would say if he was here today and had capacity. THey are both sure that he would not want this hip fixed. He would prefer to be put on pain medications, return to SNF and be allowed to pass away. We discussed the pros and cons of both. After discussion, both Joslyn and Magnus were aware that it is very painful to have an unrepaired broken hip. However this pain could be controlled with hospice level pain medication and could be made comfortable. Joslyn's major concern was her feeling that this was the natural end for Dru. If we fix his hip, he is just going to go back to the halfway and fall again and break something else. This is going to keep happening until he dies. This is not what he would want. Long discussion with . I believe she has made careful consideration of both options. She really believes that nonsurgical approach is what her would want and what is probably best for him. Very difficult decision for her. Tearful on and off throughout my visit. Magnus agrees with her decision. Assessment: Based on patient's advanced directive and previous statements when he still had capacity, family is electing against surgical repair of broken hip. They agree with progressing to active/aggressive pain management and switching to hospice with return to SNF in the next 1 to 2 days. Plan: -Hospitalist Christianne Smiht, [facility] and orthopedics called and decision shared. -On-call hospice nurse Radha called [facility] will work on admitting patient tomorrow. They will contact SNF for additional information (SNF not called by me lara) -Recommend stopping Aricept, memantadine, sertraline -Recommend starting morphine drip at 1 mg/hour with boluses prior to repositioning or as needed for uncontrolled pain. -Suggest starting senna 1 tablet daily while still able to take p.o. to help prevent constipation. Recommendations reviewed with nurse practitioner. (2) Advanced care planning/counseling discussion: Status: Acute (3) Closed fracture of neck of left femur: Status: Acute (4) Dementia: Status: Chronic (5) Hx of falling: Status: Acute PFSH All Active Problems (Updated 06/12/23 @ 17:27 by Ginny Villarreal MD) Advanced care planning/counseling discussion (Acute) Palliative care patient (Acute) Hypokalemia (Acute) Dementia (Chronic) Discharge planning issues (Acute) On deep vein thrombosis (DVT) prophylaxis (Acute) Pain management (Acute) Closed fracture of neck of left femur (Acute) Skin tear of left upper extremity (Acute) Abrasion of scalp (Acute) Laceration of left hand (Acute) Hx of falling (Acute) Immunization, tetanus-diphtheria (Acute) Social History Smoking/Tobacco Use Status: Unknown Smoking risk assessment performed?: Yes Alcohol Intake: former Substance use type: does not use Details: unknown, dementia Housing: halfway Additional Social history: Dementia, unable to answer Exam Narrative Exam Narrative: Thin quiet elderly gentleman laying in bed. Intermittently dozing and in eyes awake. When I first come in is feeding him a sandwich. She holds the sandwich for him and he eats about a quarter of the sandwich. No eye contact, no interaction with me while at the bedside. Some grunting with , occasional single words reported. Results Last Vital Signs Temp 35.9 C L 06/12/23 11:24 Pulse 64 06/12/23 11:24 Resp 17 06/12/23 11:24 BP 120/104 H 06/12/23 11:24 Pulse Ox 92 06/12/23 11:24 Labs 06/12/23 06:30 06/12/23 06:30 Labs: Laboratory Results - last 24 hr 06/11/23 06/11/23 06/12/23 19:00 20:15 04:25 WBC 10.00 RBC 4.20 L Hgb 12.8 L Hct 38.9 L MCV 93 MCH 30.5 MCHC 32.9 RDW 13.5 Plt Count 151 MPV 10.0 Immature Gran % 0.4 Neutrophils % 66.3 Lymphocytes % 14.0 Monocytes % 14.7 Eosinophils % 4.3 Basophils % 0.3 Nucleated RBC % 0.0 Absolute Neutrophils 6.63 Absolute Lymphocytes 1.40 Absolute Monocytes 1.47 H Absolute Eosinophils 0.43 Absolute Basophils 0.03 PT 10.2 INR 1.0 Sodium 145 Potassium 3.5 Chloride 107 Carbon Dioxide 31.4 Anion Gap 6.6 BUN 22 H Creatinine 0.7 Est GFR (CKD-EPI 2020) 92.57 Glucose 123 H Calcium 8.4 L Magnesium Total Bilirubin 0.8 AST 28 ALT 36 Alkaline Phosphatase 81 Total Protein 6.6 Albumin 2.8 L Urine Color Yellow Urine Clarity Clear Urine pH 7.0 Ur Specific [place] 1.020 Urine Protein Trace Urine Ketones Negative Urine Blood Negative Urine Nitrite Negative Urine Bilirubin Negative Urine Urobilinogen >=8.0 H Ur Leukocyte Esterase Negative Urine Glucose Negative MRSA (TEM-PCR) Negative 06/12/23 06:30 WBC 8.07 RBC 3.81 L Hgb 11.6 L Hct 34.9 L MCV 92 MCH 30.4 MCHC 33.2 RDW 13.5 Plt Count 141 MPV 10.1 Immature Gran % Neutrophils % Lymphocytes % Monocytes % Eosinophils % Basophils % Nucleated RBC % Absolute Neutrophils Absolute Lymphocytes Absolute Monocytes Absolute Eosinophils Absolute Basophils PT INR Sodium 145 Potassium 3.0 L Chloride 108 H Carbon Dioxide 29.3 Anion Gap 7.7 BUN 20 H Creatinine 0.7 Est GFR (CKD-EPI 2020) 92.57 Glucose 99 Calcium 7.9 L Magnesium 2.0 Total Bilirubin AST ALT Alkaline Phosphatase Total Protein Albumin Urine Color Urine Clarity Urine pH Ur Specific [place] Urine Protein Urine Ketones Urine Blood Urine Nitrite Urine Bilirubin Urine Urobilinogen Ur Leukocyte Esterase Urine Glucose MRSA (TEM-PCR)
[2023-06-12] MEDS: MORPHine 2 MG/ML SYR IVP (16:29)
[2023-06-12 16:36] VITALS: BP 143/68; PULSE 55; RESP 18; TEMP 36.2; O2SAT 95
--- NOTE | 2023-06-12 16:37 | CHAPLAIN ---
I spoke with Dru's when I visited. Dru was in bed, awake but did not speak. I explained my role and offered support. I offered to get something to drink or eat for Dru's , she said she'd be going to the cafeteria soon.
--- NOTE | 2023-06-12 17:41 | INITIAL_ITS ---
Date of service: 06/12/23 Time of Service: 17:41 Care Management Initial Assmt Initial Assessment REASON FOR HOSPITALIZATION:: Left Hip Fracture PREVIOUS FUNCTIONAL STATUS/SOCIAL/FAMILY SUPPORTS:: [facility], describes poor quality of life at baseline due to advanced disease. ADVANCE DIRECTIVES:: COLST on file. Breanna, as HCA. Has patient been provided with info about the portal/API?: No Did the patient sign up for the portal?: No CODE STATUS:: DNR/DNI INSURANCE COVERAGE / FINANCIAL ISSUES:: [facility] CURRENT [facility]/COMMUNITY SERVICES/EQUIPMENT:: Resides at [facility]. POTENTIAL DISCHARGE NEEDS:: Coordinated return to [facility]. Palliative consult. PATIENT/FAMILY EDUCATION NEEDS:: Review discharge instructions, discuss Ask Me Three. ANTICIPATED BARRIERS TO DISCHARGE:: Surgical intervention; determining patient and family wishes. TRANSPORTATION:: EMS PLAN:: Palliative and surgical consults for coordinated today related to her concern for moving forward with hip repair. She explained that it does not align with his goals and verbalized anguish at prolonging his life. Discussion warranted related to surgical intervention described as palliative for pain control. continues to have additional questions and concerns, surgery delayed until Palliative consult can be completed. CM continues to follow. [facility] All Active Problems (Updated 06/12/23 @ 17:27 by Ginny Villarreal MD) Advanced care planning/counseling discussion (Acute) Palliative care patient (Acute) Hypokalemia (Acute) Dementia (Chronic) Discharge planning issues (Acute) On deep vein thrombosis (DVT) prophylaxis (Acute) Pain management (Acute) Closed fracture of neck of left femur (Acute) Skin tear of left upper extremity (Acute) Abrasion of scalp (Acute) Laceration of left hand (Acute) Hx of falling (Acute) Immunization, tetanus-diphtheria (Acute) Social History Smoking/Tobacco Use Status: Unknown Smoking risk assessment performed?: Yes Alcohol Intake: former Substance use type: does not use Details: unknown, dementia Housing: senior care Additional Social history: Dementia, unable to answer SDOH(Care Management) Screening Will the Patient Participate in the Screening?: Unable to obtain Social Determinants of Health Comments(SDOH Details): lives at rehab
[2023-06-12] MEDS: Ketorolac 15 MG/ML VIAL IVP (18:47)
[2023-06-12 19:45] VITALS: BP 118/74; PULSE 64; RESP 17; TEMP 36.4; O2SAT 96
[2023-06-12 23:23] VITALS: BP 137/65; PULSE 58; RESP 19; TEMP 36; O2SAT 95
[2023-06-13] VITALS (7 sets, daily range): BP systolic 102–179; BP diastolic 59–108; PULSE 50–68; RESP 16–19; TEMP 36.4–36.9; O2SAT 92–95
[2023-06-13] MEDS: Ketorolac 15 MG/ML VIAL IVP ×3 (00:10→12:12)
[2023-06-13] MEDS: MORPHine 2 MG/ML SYR IVP ×3 (03:17→23:21)
[2023-06-13] MEDS: ACETAMINOPHEN 1,000 MG/100 ML BTL 400 MG IVPB ×2 (03:17→12:12)
[2023-06-13 06:15] LABS: Abs Immature Grans 0.04 10^3/uL (0.0-0.06); Absolute Basophil Count 0.04 10^3/uL (0.0-0.2); Absolute Eosinophil Count 0.55 10^3/uL (0.0-0.7); Absolute Lymphocyte Count 1.45 10^3/uL (1.2-3.4); Absolute Monocyte Count 1.02 10^3/uL (0.1-0.8); Basophils % 0.6; Eosinophils % 8.6; HCT 34.4 % (40.0-50.0); HGB 11.5 g/dL (13.5-17.5); Immature Grans % 0.6; Lymphocytes % 22.7; MCH 30.3 pg (27.0-33.0); MCHC 33.4 % (32.0-36.0); MCV 91 fL (80-95); MPV 10.2 fL (8.0-11.0); Monocytes % 15.9; Neutrophils % 51.6; Platelet Count 159 10^3/uL (130-400); RBC 3.79 10^6/uL (4.36-5.78); RDW 13.2 % (11.8-14.1); RDW-SD 44.2 fL
[2023-06-13 06:24] LABS: Anion Gap 8.6 mmol/L (3-11); BUN 16 mg/dL (7-18); CO2 24.4 mmol/L (21.0-32.0); CREATININE 0.6 mg/dL (0.70-1.30); Calcium 7.9 mg/dL (8.5-10.1); Chloride 109 mmol/L (98-107); Estimated GFR 96.98 (mL/min/1.73m2); Glucose 95 mg/dL (74-106); Magnesium 1.9 mg/dL (1.8-2.4); Potassium 3.5 mmol/L (3.5-5.1); Sodium 142 mmol/L (136-145)
--- NOTE | 2023-06-13 07:30 | W.PM.PROGNOT ---
Date of Service Date of service: 06/13/23 Time of Service: 10:00 Assessment and Plan Assessment and plan (1) Closed fracture of neck of left femur: Status: Acute Assessment and plan: Dru is an 83-year-old male who has progressive and severe dementia with more frequent falls and a left femoral neck fracture. Dru's family had a long meeting with palliative care, Dr. Villarreal, and discussed all options. I had previously discussed these treatment options with him as well. After review of all this information and considering Dru's wishes as expressed to them directly and through his living will, they proceeded to move forward with comfort measures approach with hospice. All of their questions were answered. At this point, we will cancel any plans for surgery and he may resume any regular diet per the medical team. Subjective Subjective Interval history since last seen: Dru and his , Breanna, had a meeting with Dr. Villarreal from Palliative Care yesterday afternoon. After reviewing Dru's wishes and the potential options for treatment of his current hip fracture and his overall health and wellbeing and medical condition, if decided to proceed with a comfort measures only approach with hospice. Objective Last Vital Signs Temp 36.4 C L 06/13/23 03:39 Pulse 53 L 06/13/23 03:39 Resp 19 06/13/23 03:39 BP 165/74 H 06/13/23 03:39 Pulse Ox 93 06/13/23 03:39 Laboratory Results - last 24 hr 06/13/23 05:55 WBC 6.40 RBC 3.79 L Hgb 11.5 L Hct 34.4 L MCV 91 MCH 30.3 MCHC 33.4 RDW 13.2 Plt Count 159 MPV 10.2 Immature Gran % 0.6 Neutrophils % 51.6 Lymphocytes % 22.7 Monocytes % 15.9 Eosinophils % 8.6 Basophils % 0.6 Nucleated RBC % 0.0 Absolute Neutrophils 3.30 Absolute Lymphocytes 1.45 Absolute Monocytes 1.02 H Absolute Eosinophils 0.55 Absolute Basophils 0.04 Sodium 142 Potassium 3.5 Chloride 109 H Carbon Dioxide 24.4 Anion Gap 8.6 BUN 16 Creatinine 0.6 L Est GFR (CKD-EPI 2020) 96.98 Glucose 95 Calcium 7.9 L Magnesium 1.9 Time Spent with Patient Time Spent with Patient: <25 minutes Time was spent: obtaining and/or reviewing separately otained hiistory, counseling the patient and care coordination
[2023-06-13] MEDS: Normal Saline Flush 10 ML SYR IVP (09:50)
[2023-06-13] MEDS: Memantine 5 MG TAB 20 MG PO (10:34)
[2023-06-13] MEDS: Sertraline 25 MG TAB PO (10:35)
--- NOTE | 2023-06-13 11:50 | PDOC.CMPRO ---
Date of service: 06/13/23 Time of Service: 11:50 Care Management Progress Note Progress Note Text Progress Note Text: S/O: Dru woke up this afternoon and was experiencing pain, per [facility]-Palliative. Anticipate he will return home as soon as tomorrow, via EMS. CM continues to follow. A: 83 year old male admitted to [facility] 06/11/23 for Left Hip Fracture P: Dru will return to [facility] for [facility], on comfort care. He will transport via EMS. SDOH(Care Management) Screening Will the Patient Participate in the Screening?: Unable to obtain Social Determinants of Health Comments(SDOH Details): lives at rehab
--- NOTE | 2023-06-13 13:13 | PGE_ITS ---
Date of Service Date of service: 06/13/23 Time of Service: 13:13 Assessment and Plan Assessment and plan (1) Closed fracture of neck of left femur: Status: Acute Assessment and plan: after multiple discussions decision made for no surgical repair, WORKFORCE STAFFING ADVISOR status initiated will apply low dose fentanyl and adjust as needed, prn morphine for care/repositioning plan to discharge back to rehab facility for end of life care. (2) Pain management: Status: Acute Assessment and plan: continue to adjust as needed (3) Hx of falling: Status: Acute Assessment and plan: CT head and C-spine were negative on admit fall precautions, non ambulatory now with acute hip fracture (4) Dementia: Status: Chronic Assessment and plan: severe advanced dementia at baseline Addition of seroquel overnight, will continue as needed (5) Hypokalemia: Status: Acute Assessment and plan: was repleted, no further monitoring or repletion (6) On deep vein thrombosis (DVT) prophylaxis: Status: Acute Assessment and plan: no longer applicable (7) Discharge planning issues: Status: Acute Assessment and plan: Palliative consulted and following. Discussed with Dr. Nuno Subjective Subjective Interval history since last seen: patient resting quietly, received morphine prior to repositioning with good effect, feels he seems comfortable and has no concerns. Exam Narrative Exam Narrative: elderly male of stated age, no acute distress. resting quietly with eyes closely, respirations even and unlabored. skin pink warm and dry. Objective Last Vital Signs Temp 36.6 C 06/13/23 09:01 Pulse 58 L 06/13/23 09:01 Resp 16 06/13/23 09:01 BP 140/72 06/13/23 09:01 Pulse Ox 92 06/13/23 09:01 Laboratory Results - last 24 hr 06/13/23 05:55 WBC 6.40 RBC 3.79 L Hgb 11.5 L Hct 34.4 L MCV 91 MCH 30.3 MCHC 33.4 RDW 13.2 Plt Count 159 MPV 10.2 Immature Gran % 0.6 Neutrophils % 51.6 Lymphocytes % 22.7 Monocytes % 15.9 Eosinophils % 8.6 Basophils % 0.6 Nucleated RBC % 0.0 Absolute Neutrophils 3.30 Absolute Lymphocytes 1.45 Absolute Monocytes 1.02 H Absolute Eosinophils 0.55 Absolute Basophils 0.04 Sodium 142 Potassium 3.5 Chloride 109 H Carbon Dioxide 24.4 Anion Gap 8.6 BUN 16 Creatinine 0.6 L Est GFR (CKD-EPI 2020) 96.98 Glucose 95 Calcium 7.9 L Magnesium 1.9 Time Spent with Patient Time Spent with Patient: 35-49 minutes Time was spent: preparing to see the patient(eg.review tests), obtaining and/or reviewing separately otained hiistory, ordering medications,tests, procedures, indepentently interpreting results and counseling the patient
[2023-06-13] MEDS: fentaNYL 12 MCG PATCH TD (14:31)
--- NOTE | 2023-06-13 16:34 | W.PALPGNOTE ---
Date of service: 06/13/23 Time of Service: 14:00 Assessment and Plan Assessment and plan (1) Advanced care planning/counseling discussion: Status: Acute Assessment and plan: reviewed plan for pain and symptom management similar in style to hospice - reviewed limitations with no pump management available by [facility] without hospice support. comfortable w/current pain management, would like palliative to follow at [facility]. reviewed discharge plan reviewed life expectancy, in terms of timeline, this is difficult to asses given his acute status changes, we reviewed that it is more likely measured in weeks vs months, and this could shift to days to weeks pending how he is doing over the next few days. We reviewed that PO intake/nutritional status would change this timeline (2) Palliative care patient: Status: Acute Assessment and plan: palliative will continue to follow outpatient, plan for [facility], soonest available recommend all comfort medications ordered at [facility] - to be managed by PATIENT SERVICE TECHNICIAN PST Rani at [facility], with palliative support as needed recommend starting scopolamine patch (3) Dementia: Status: Chronic Assessment and plan: based on today's interaction he is a FAST scale 7, however family/staff report he had been using intermittent words/speech, non-sensicle (4) Discharge planning issues: Status: Acute Assessment and plan: He will return to [facility], would the [facility] cover room and board AND hospice - will has [facility] to look into this (5) Pain management: Status: Acute Assessment and plan: currently receiving morphine sparingly will start low dose fentanyl and continue PRN morphine a CADD pump would do best to manage Dru's pain, any effort to see if hospice could be enrolled should be pursued w/highest improtance (6) Closed fracture of neck of left femur: Status: Acute Assessment and plan: no surgical intervention Subjective Subjective Interval history since last seen: Dru remains hospitalized at [facility] 2/2 displaced L femoral neck; plan for discharge tomorrow, to return to [facility] for EOL care as skilled need. and daughter present at bedside Dru is receiving POLICE JUSTICE style care at this time. His pain has been managed w/PRN morphine and they are planning to start a fentanyl patch prior to discharge. Unfortunately, [facility] cannot manage a pain pump. Staff have been pre-medicating Dru prior to repositioning. Staff have concern that his pain is under managed at times, he only appears to be in no pain if no one moves/touches him. After administration of morphine, his pain appears to be improved. /HCA would like fentanyl patch placed for long acting, and would like close monitoring and administration of morphine PRN, to avoid all pain as possible. She is comfortable with his current pain management, and would like reassurance that [facility] staff are ready to provide same level of pain management. per , he has had an increase in cough today, with some difficulty clearing. Staff worry about his risk for aspiration PNA, they found feeding him with HOB flat. His appetite has been down, and not always interested in eating himself, family will feed him during these times. he is [facility] connected biggest goal is to control pain would like to learn more about life expectency Exam Narrative Exam Narrative: elderly male of stated age, no acute distress. resting quietly with eyes closed early in visit; grimace at end of visit, eyes open respirations even and unlabored. no audible wheeze or cough, HOB elevated skin pink warm and dry. intermittently reaches up, touches nose, fidgets with blankets; does not make any speech Objective Last Vital Signs Temp 97.9 F 06/13/23 15:04 Pulse 68 06/13/23 15:04 Resp 16 06/13/23 15:04 BP 102/59 L 06/13/23 15:04 Pulse Ox 94 06/13/23 15:04 Laboratory Results - last 24 hr 06/13/23 05:55 WBC 6.40 RBC 3.79 L Hgb 11.5 L Hct 34.4 L MCV 91 MCH 30.3 MCHC 33.4 RDW 13.2 Plt Count 159 MPV 10.2 Immature Gran % 0.6 Neutrophils % 51.6 Lymphocytes % 22.7 Monocytes % 15.9 Eosinophils % 8.6 Basophils % 0.6 Nucleated RBC % 0.0 Absolute Neutrophils 3.30 Absolute Lymphocytes 1.45 Absolute Monocytes 1.02 H Absolute Eosinophils 0.55 Absolute Basophils 0.04 Sodium 142 Potassium 3.5 Chloride 109 H Carbon Dioxide 24.4 Anion Gap 8.6 BUN 16 Creatinine 0.6 L Est GFR (CKD-EPI 2020) 96.98 Glucose 95 Calcium 7.9 L Magnesium 1.9
[2023-06-13] MEDS: Acetaminophen 325 MG TAB 650 MG PO (19:57)
[2023-06-14 07:40] VITALS: BP 111/79; PULSE 62; RESP 14; TEMP 36.8; O2SAT 94
[2023-06-14] MEDS: Acetaminophen 325 MG TAB 650 MG PO ×2 (08:25→11:43)
[2023-06-14] MEDS: Sertraline 25 MG TAB PO (08:25)
[2023-06-14] MEDS: Memantine 5 MG TAB 20 MG PO (08:25)
[2023-06-14] MEDS: Normal Saline Flush 10 ML SYR IVP (08:52)
[2023-06-14] MEDS: MORPHine 2 MG/ML SYR IVP (10:18)
--- NOTE | 2023-06-14 10:25 | CMDISCH_ITS ---
Date of service: 06/14/23 Time of Service: 10:25 LACE Index Scoring Tool Questions: Length of Stay (in days): 3 Was the patient admitted via the E.D.?: Yes Comorbidities: Dementia E.D. Visits: 2 Answers: Total Score: 11 Risk of Readmission: High Risk Care Management Discharge Plan Reason for Hospitalization: Left Hip Fracture Discharge Plan: Dru returned to [facility] for skilled end of life care. He was transported via [facility], coordinated by CM. He will follow up with palliative care and facility providers. Patient/Family Education Needs: Review discharge instructions with family and facility, discussion of self care needs and goals of care. Services Needed at Discharge: Residential Facility ([facility]) and Transportation ([facility]) SDOH Health Related Social Needs: No Data to Display
--- NOTE | 2023-06-14 10:42 | W.PM.DS.N ---
Date of service: 06/14/23 Time of Service: 10:42 DS: Diagnosis Discharge Diagnosis (1) Palliative care patient: Status: Acute (2) Dementia: Status: Chronic (3) Pain management: Status: Acute (4) Closed fracture of neck of left femur: Status: Acute Discharge Plan Disposition Patient Disposition: Long-Term Facility(SNF) Condition: Fair Discharge Details Reason For Visit: Left Hip Fracture Admit Date/Time: 06/11/23 16:08 Admit Provider: Hemanth Nuno Attending Provider: Hemanth Nuno Primary Care Provider: Unknown,Unknown Hospital Course Hospital Course: This is an 83-year-old male patient with severe advanced dementia with behavioral disturbance who resides at [facility] who has recently had multiple falls his last fall resulting in a closed fracture of the left femoral neck. He was transported to the emergency department for evaluation palliative care consultation and orthopedic consultation obtained. After discussion with family and in consideration of patient's previous wishes when he had capacity it was decided to forego surgical repair and to focus on comfort care only. He was started on a fentanyl patch and pain was well-managed when at rest. He did require subcu morphine with position change or ADLs. He had no behavioral disturbances while hospitalized. There was no other injuries noted from his fall. He was eating and drinking and taking his oral medications without difficulty. Case management following and arrangements to return back to [facility] for comfort care. He will be transported back by ground EMS discharge discussed with DR Nuno. Home Meds and New Rx's Prescriptions: New acetaminophen 325 mg Tablet 650 mg PO QID Qty: 0 0RF polyethylene glycol 3350 17 gram Powder In Packet 17 g PO DAILY PRN PRN (Reason: Constipation) Qty: 0 0RF docusate sodium [Colace] 100 mg Capsule 100 mg PO TID PRN PRNQty: 0 0RF fentanyl 12 mcg/hr Patch 72 Hour 12 mcg transdermal Q72H Qty: 0 0RF morphine 2 mg/mL solution 2 mg subcut Q4H PRNQty: 25 0RF Continued memantine 10 mg tablet 20 mg PO QAM sertraline 25 mg tablet 25 mg PO DAILY Discontinued donepezil [Aricept] 10 mg tablet 10 mg PO QHS aspirin 81 mg tablet,delayed release (DR/EC) 81 mg PO DAILY Artificial Tears (cmc) 1 % drops 2 drp ophthalmic (eye) BID-QID PRN doxazosin 1 mg tablet 1 mg PO QHS bisacodyl 10 mg suppository 10 mg VT ONCE PRN magnesium oxide 400 mg magnesium tablet 400 mg PO DAILY polyethylene glycol 3350 [Miralax] 17 gram/dose powder 17 g PO DAILY PRN sennosides 8.6 mg tablet 8.6 mg PO DAILY Discharge Instructions Instructions: and Dying (DC), Hip Fracture (ED) Additional Instructions: adjust pain medication as directed. Referrals: Unknown,Unknown [Primary Care Provider] - (routine care home follow up) Activity:: Activity as Tolerated Equipment/Supplies:: No Equipment Needed Diet:: As Tolerated Discharge Orders Discharge Orders: Discharge Order (Routine); Ordered 06/14/23 Ordered By: Candice Patel DS: Summary Time Spent with Patient providing and/or coordinating discharge services: Greater than 30 minutes Status at Discharge Functional status at discharge: bed bound Overall status at discharge: patient is not back to baseline Mental Status: other (severe advanced dementia) Speech and Movement: other Mood: other (severe advanced dementia) Affect: normal affect Quality:SDOH Health Related Social Needs: No Data to Display Exam Narrative Exam Narrative: Elderly gentleman of stated age no acute distress head atraumatic normal appearance of face neck with full range of motion respirations even and unlabored skin is pink warm dry well-perfused. He is awake alert severe dementia at baseline Psych Mental Status: other (severe advanced dementia) Speech and Movement: other Mood: other (severe advanced dementia) Affect: normal affect DS: Data Vitals/I&O Vitals and I&O: Vital Signs Temperature 36.8 C 06/14/23 07:40 Temperature Source Tympanic 06/14/23 07:40 Pulse 62 06/14/23 07:40 Pulse Rhythm Regular 06/14/23 06:20 Respiratory Rate 14 06/14/23 07:40 Respiratory Effort Normal, Non-Labored 06/14/23 10:25 Respiratory Depth Normal 06/14/23 10:25 Respiratory Pattern Normal 06/14/23 10:25 Blood Pressure 111/79 06/14/23 07:40 Blood Pressure Mean 110 06/11/23 17:24 Blood Pressure Position Supine 06/11/23 13:55 Pulse Oximetry 94 06/14/23 07:40 Oxygen Delivery Method Room Air 06/14/23 07:40 Oxygen Flow Rate 0 06/14/23 07:40 Pain Level 6 06/14/23 10:18 Comment Nurse notified. 06/13/23 20:03 Intake & Output 06/13/23 06/13/23 06/14/23 11:59 23:59 11:59 Intake Total 110 / 210 100 / 210 Output Total 1150 / 1350 200 / 1350 500 / 500 Balance -1040 / -1140 -100 / -1140 -500 / -500 Intake: IV 110 / 210 100 / 210 Output: Urine 1150 / 1350 200 / 1350 500 / 500 Other: Urine Color Yellow Yellow Yellow Urine Appearance Clear Clear Clear Urine Odor None Comment Condom Catheter New condom cath replaced due to pT took the other one off. Condom catheter. Voiding Methods Diaper Incontinent PFSH All Active Problems (Updated 06/12/23 @ 17:27 by Ginny Villarreal MD) Advanced care planning/counseling discussion (Acute) Palliative care patient (Acute) Hypokalemia (Acute) Dementia (Chronic) Discharge planning issues (Acute) On deep vein thrombosis (DVT) prophylaxis (Acute) Pain management (Acute) Closed fracture of neck of left femur (Acute) Skin tear of left upper extremity (Acute) Abrasion of scalp (Acute) Laceration of left hand (Acute) Hx of falling (Acute) Immunization, tetanus-diphtheria (Acute) Social History Smoking/Tobacco Use Status: Unknown Smoking risk assessment performed?: Yes Alcohol Intake: former Substance use type: does not use Details: unknown, dementia Housing: care home Additional Social history: Dementia, unable to answer Time Spent with Patient Time Spent with Patient: 45-69 minutes Time was spent: preparing to see the patient(eg.review tests), ordering medications,tests, procedures and care coordination
[2023-06-14] MEDS: Ketorolac 30 MG/ML VIAL IVP (12:09)
[2023-06-14] MEDS: MORPHine 4 MG/ML SYR IVP (12:10)
== END 2023-06-14 12:20 | disposition skilled nursing facility (03) | DRG 536 ==
LOC: ER 17:18 → MS 17:38
PROVIDERS: Family Medicine; Nurse Practitioner Acute Care; Admitting Provider Family Medicine; Emergency Provider Emergency Medicine; Visit Provider Family Medicine
DX: S72.002A Fracture of unspecified part of neck of left femur, initial encounter for closed fracture (principal); G89.11 Acute pain due to trauma; G30.9 Alzheimer's disease, unspecified; F02.C0 Dementia in other diseases classified elsewhere, severe, without behavioral disturbance, psychotic disturbance, mood disturbance, and anxiety; Z51.5 Encounter for palliative care; M25.552 Pain in left hip; Z91.81 History of falling; Z79.899 Other long term (current) drug therapy; W19.XXXA Unspecified fall, initial encounter
CPT/HCPCS: 00123; 36415; 73521; 80048; 80053; 85027; 87641; 99285; 70450; 72125; 81003; 83735; 85025; 85610; 87086; 93005; 93010; 99223; 99232; 99239; J0131; J1885; J2270; J3480